=== PATIENT | male | born 1960 | race Hispanic/Latino ===

== ENCOUNTER 2016-10-04 10:21 | Emergency (ER) | payer BC ==
[2016-10-04 10:27] VITALS: BMI 25.1
[2016-10-04 10:29] VITALS: BP 133/65; PULSE 82; RESP 20; TEMP 98; O2SAT 98
--- NOTE | 2016-10-04 10:44 | ED PDOC ---
HPI: General Adult Time Seen by Provider: 10/04/16 10:40 Chief Complaint (Provider): left foot pain History/Exam Limitations: no limitations Additional Complaint(s): 56yo male complaining of left foot pain for 1 week. Difficulty bearing weight or bending toes. Denies falls or trauma at onset. Past Medical History Reviewed: Historical Data, Nursing Documentation, Vital Signs Vital Signs: Last Vital Signs Temp 98 F 10/04/16 10:27 Pulse 82 10/04/16 10:27 Resp 20 10/04/16 10:27 BP 133/65 10/04/16 10:27 Pulse Ox 98 10/04/16 10:44 - Medical History Other PMH: gout - Surgical History Surgical History: No Surg Hx - Family History Family History: States: Unknown Family Hx - Living Arrangements Living Arrangements: With Family - Social History Drugs: Denies - Home Medications Home Medications: Ambulatory Orders Medication Instructions Recorded Naproxen [Naprosyn] 500 mg PO Q12H #20 tab 10/04/16 - Allergies Allergies/Adverse Reactions: Allergies Allergy/AdvReac Type Severity Reaction Status Date / Time Penicillins Allergy Verified 10/04/16 10:45 Review of Systems ROS Statement: Except As Marked, All Systems Reviewed And Found Negative Musculoskeletal: Positive for: Foot Pain Physical Exam - Reviewed Nursing Documentation Reviewed: Yes Vital Signs Reviewed: Yes - Physical Exam Appears: Positive for: Well, Non-toxic, No Acute Distress Head Exam: Positive for: ATRAUMATIC, NORMAL INSPECTION, NORMOCEPHALIC Skin: Positive for: Warm, Dry Extremity: Positive for: Tenderness (Left foot: 2nd and 3rd distal MTP tenderness .no erythema or swelling. ) - ECG O2 Sat by Pulse Oximetry: 98 Medical Decision Making Medical Decision Makin Labs to rule out gout. XR to rule out fracture. Disposition - Clinical Impression Clinical Impression: Left foot pain - Patient ED Disposition Is Patient to be Admitted: No Counseled Patient/Family Regarding: Studies Performed, Diagnosis, Need For Followup, Rx Given - Disposition Referrals: Edison Dick DPM [Staff Provider] - Disposition: Routine/Home Disposition Time: 12:56 Condition: FAIR Prescriptions: Naproxen [Naprosyn] 500 mg PO Q12H #20 tab Instructions: Foot Sprain (ED) Additional Comments - Additional Comments Additional Comments: Scribe Attestation: Documented by Ady Villanueva acting as a scribe for Long Millard MD. Provider Scribe Attestation: All medical record entries made by the Scribe were at my direction and personally dictated by me. I have reviewed the chart and agree that the record accurately reflects my personal performance of the history, physical exam, medical decision making, and the department course for this patient. I have also personally directed, reviewed, and agree with the discharge instructions and disposition.
--- NOTE | 2016-10-04 11:21 | RAD ---
PROCEDURE: Left foot dated 10/04/2016 HISTORY: pain . Technologist notation indicates left foot pain with no history of trauma COMPARISON: None. FINDINGS: BONES: No evidence of acute displaced fracture nor dislocation. The osseous structures intact. JOINTS: Mild hallux valgus deformity. There appears to be some minor lateral joint space narrowing 1st MTP joint and minimal early spurring along the medial marginal lateral osteophyte formation. SOFT TISSUES: Normal. OTHER FINDINGS: None. IMPRESSION: No evidence of acute displaced fracture nor dislocation. Mild hallux valgus deformity. There appears to be some minor lateral joint space narrowing 1st MTP joint and minimal early spurring along the medial marginal lateral osteophyte formation.
[2016-10-04] MEDS ORDERED: Naproxen 500 MG TAB PO STA (12:33)
[2016-10-04] MEDS ORDERED: Naproxen 500 MG TAB PO ONE (12:33)
--- NOTE | 2016-10-04 17:09 | CP.PCM.CON ---
History of Present Illness - History of Present Illness History of Present Illness: PODIATRY CONSULT NOTE 56 year old male seen in ED concerning left foot pain. Pain has been ongoing for the past 2 weeks localized to the dorsal aspect of the forefoot region. Pt reports that when walking the pain as "sharp, stabbing /10." Pt denies recent acute trauma to the area. Pt reports unremarkable past medical history. Pt has not sough medical intervention at this time. Past Patient History - Infectious Disease Hx of Infectious Diseases: None - Past Social History Drugs: Denies - PSYCHIATRIC Hx Substance Use: No - SURGICAL HISTORY Hx Surgeries: Yes Other/Comment: left shoulder/knee surgery - ANESTHESIA Hx Anesthesia: Yes Hx Anesthesia Reactions: No Meds Home Medications: Home Medication List Medication Instructions Recorded Confirmed Type Naproxen [Naprosyn] 500 mg PO Q12H #20 tab 10/04/16 Rx Allergies/Adverse Reactions: Allergies Allergy/AdvReac Type Severity Reaction Status Date / Time Penicillins Allergy Verified 10/04/16 10:45 Physical Exam - Constitutional Appears: Well, Non-toxic, No Acute Distress - Extremities Exam Additional comments: Left foot focused. VASC: DP and PT arteries fully palpable graded 2/4. CRF to all digits was < 3 seconds. No calf pain on compression. Localized non-pitting edema noted overlying middle 2nd and 3rd rays. NEURO: Protective sensation grossly intact. DERM: Skin is supple with normal turgor. No open wounds leson, and macerations noted. ORTHO: Forefoot valgus deformity noted. Silverskoid test reveals tendo-achilles equinus bilaterally. Posterior compartment pain illicited on stress dorsiflexion of ankle joint, isolated. Pain illicited in stress dorsiflexion of tendons along extenso course. . - Neurological Exam Neurological exam: Alert, Oriented x3 - Psychiatric Exam Psychiatric exam: Normal Affect, Normal Mood Results - Vital Signs Recent Vital Signs: Last Vital Signs Temp 98 F 10/04/16 10:27 Pulse 82 10/04/16 10:27 Resp 20 10/04/16 10:27 BP 133/65 10/04/16 10:27 Pulse Ox 98 10/04/16 12:57 - Labs Labs: Laboratory Results - last 24 hr 10/04/16 11:12 Uric Acid 4.6 Assessment & Plan - Assessment and Plan (Free Text) Assessment: 56 year old male with tendo-achilles equinus with extensor tendon strain. Plan: Pt evaluated and treated at bedside. Charts, labs, and vitals reviewed. X-rays reviewed- Unremarkable. Discussed with attending Dr. Dick. Pt to remain weightbearing to heel as tolerated with use of post-op shoe. NSAIDs Pt ti perform R.I.C.E therapy. Pt to follow-up in office w/ Dr. Dick within 1 week. - Date & Time Date: 10/04/16 Time: 14:25
== END 2016-10-04 13:45 | disposition home or self-care (01) ==
LOC: H.ER 10:21
DX: M79.672 Pain in left foot (principal); Z88.0 Allergy status to penicillin; M10.9 Gout, unspecified